=== PATIENT | female | born 1990 | race Two or more races ===

== ENCOUNTER 2017-04-17 22:29 | Emergency (ER) | payer SELFPAY ==
[~2017-04-17] VITALS: Ht 154.9 cm; Wt 47.2 kg
[2017-04-17] MEDS ORDERED: IV NS 0.9% 1,000 ML ONE (23:23)
[2017-04-17] MEDS ORDERED: IV SET PRIMARY 1 EA INFUS.SET MC ONE (23:24)
[2017-04-17] MEDS ORDERED: ONDANSETRON HCL/PF 4 MG/2 ML VIAL ONE (23:24)
[2017-04-17] MEDS ORDERED: HYDROMORPHONE 1 MG/1 ML DISP.SYRIN ONE (23:24)
--- NOTE | 2017-04-17 23:35 | NUR ---
PT PRESENTED TO THE ER WITH A C/O MID ABD PAIN 05/09. PT STATED THAT SHE IS NAUSEATED AND VOMITTED [employer]PA[employer]. PT IS ON THE MONITOR AND CONTINUOUS PULSE OX. PT'S FRIENDS ARE AT THE BEDSIDE.
[2017-04-17] MEDS: ONDANSETRON HCL/PF 4 MG/2 ML VIAL IVP ONE (23:50)
[2017-04-17] MEDS: HYDROMORPHONE 1 MG/1 ML DISP.SYRIN IV ONE (23:50)
[2017-04-17] MEDS: IV NS 0.9% 1,000 ML BAG IV ONE (23:50)
[2017-04-17 23:57] LABS: BASOPHILS % (AUTO) 0.5 % (0.0-2.0); EOSINOPHILS # (AUTO) 0.1 /CMM (0.0-0.7); EOSINOPHILS % (AUTO) 1.1 % (0.0-6.0); HEMATOCRIT 45 % (33-45); HEMOGLOBIN 14.9 g/dL (11.5-14.8); LYMPHOCYTES # (AUTO) 2.7 /CMM (0.8-4.8); LYMPHOCYTES % (AUTO) 28.6 % (20.0-44.0); MEAN CORPUSCULAR HEMOGLOBIN 31 PG (26.0-33.0); MEAN CORPUSCULAR HGB CONC 33 g/dl (31.0-36.0); MEAN CORPUSCULAR VOLUME 91 fL (82-100); MONOCYTES # (AUTO) 0.7 /CMM (0.1-1.30); MONOCYTES % (AUTO) 7.3 % (2.0-12.0); NEUTROPHILS # (AUTO) 5.9 /CMM (1.8-8.9); NEUTROPHILS % (AUTO) 62.5 % (43.0-81.0); PLATELET COUNT (AUTO) 320 /CMM (150-450); RED BLOOD CELL COUNT(AUTO) 4.88 MIL/uL (4.0-5.2); WHITE BLOOD COUNT (AUTO) 9.5 K/uL (4.3-11.0)
[2017-04-18 00:05] LABS: CALCIUM, SERUM 9.2 mg/dL (8.5-10.1); CREATININE 0.6 mg/dL (0.6-1.3); POTASSIUM 3.5 mmol/L (3.5-5.1)
--- NOTE | 2017-04-18 00:10 | NUR ---
RODRIGO JAGDEEP, IS AT THE BEDSIDE.
[2017-04-18 00:12] LABS: ALBUMIN 4.5 g/dL (3.4-5.0); BILIRUBIN,DIRECT 0.1 mg/dL (0.0-0.2); BILIRUBIN,TOTAL 0.7 mg/dL (0.2-1.0); TOTAL PROTEIN, SERUM 8.1 g/dL (6.4-8.2)
[2017-04-18 00:18] LABS: INR 0.97 (0.87-1.13); PROTHROMBIN TIME 10.4 SECS (9.5-12.7)
[2017-04-18] MEDS ORDERED: HYDROMORPHONE 1 MG/1 ML DISP.SYRIN ONE (00:39)
[2017-04-18] MEDS: HYDROMORPHONE 1 MG/1 ML DISP.SYRIN IV ONE (00:50)
--- NOTE | 2017-04-18 01:45 | NUR ---
IV removed. Catheter intact and site benign. Pressure and 4x4 applied to site. No bleeding noted. Patient discharged to home in stable condition. Written and verbal after care instructions given. Patient verbalizes understanding of instruction AND RX. PT'S SISTER IS DRIVING PT HOME. VSS.
[2017-04-18 01:49] VITALS: BP 132/77
== END 2017-04-18 01:51 | disposition home or self-care (01) ==
LOC: ER 22:29
DX: R10.11 Right upper quadrant pain (principal); R11.2 Nausea with vomiting, unspecified
CPT/HCPCS: 76705-TC; 80048-TC; 80076-TC; 83690-TC; 84703-TC; 85025-TC; 85730-TC; A4606; J1170; J2405; J7030; Z7610

== ENCOUNTER 2019-11-17 20:55 | Emergency (ER) | payer BC ==
[~2019-11-17] VITALS: Ht 154.9 cm; Wt 45.4 kg
[2019-11-17 21:11] VITALS: BP 142/84
--- NOTE | 2019-11-17 21:24 | NUR ---
URINE COLLECTED AND SENT TO LAB
[2019-11-17 22:31] LABS: APPEARANCE,URINE Clear (CLEAR); BILIRUBIN,URINE SMALL (NEGATIVE); BLOOD, URINE Negative Ery/uL (NEGATIVE); COLOR,URINE Yellow (YELLOW); KETONES,URINE 40 (NEGATIVE); LEUKOCYTE ESTERASE ,URINE Trace (NEGATIVE); NITRITE, URINE Negative (NEGATIVE); PH,URINE 5.5 (5.0-8.0); PROTEIN,URINE 30 mg/dl (NEGATIVE); UGLUCOSE Negative (NEGATIVE)
--- NOTE | 2019-11-17 22:32 | NUR ---
BLOOD DRAWN BY PHLEB
[2019-11-17 22:43] LABS: BACTERIA,URINE Few /HPF (None Seen); RBC,URINE NONE SEEN /HPF (0-2); SQUAMOUS EPITHELIAL CELL,UR Few /HPF (None Seen)
== END 2019-11-17 23:16 | disposition home or self-care (01) ==
LOC: ER 20:55
DX: N39.0 Urinary tract infection, site not specified (principal); Z60.2 Problems related to living alone
CPT/HCPCS: 36415; 81000-TC; 84702-TC

== ENCOUNTER 2019-12-06 22:01 | Emergency (ER) | payer BC ==
[~2019-12-06] VITALS: Ht 177.8 cm; Wt 47.6 kg
--- NOTE | 2019-12-06 22:51 | NUR ---
PT CAME INTO THE ED C/O RECURRING BLADDER PRESSURE. NO PAIN. ON MACROBID 100 MG SINCE YESTERDAY. PT AAOX4, VSS, BREATHING EVEN AND UNLABORED ON ROOM AIR W/ NAD NOTED
[2019-12-06 23:56] VITALS: BP 117/89
[2019-12-06 23:58] LABS: APPEARANCE,URINE Clear (CLEAR); BILIRUBIN,URINE SMALL (NEGATIVE); BLOOD, URINE Negative Ery/uL (NEGATIVE); COLOR,URINE Red (YELLOW); KETONES,URINE 15 (NEGATIVE); LEUKOCYTE ESTERASE ,URINE Large (NEGATIVE); NITRITE, URINE Positive (NEGATIVE); PROTEIN,URINE 100 mg/dl (NEGATIVE); UGLUCOSE 250 MG/DL mg/dL (NEGATIVE); UROBILINOGEN,URINE >=8.0 EU/dL (0.2)
[2019-12-07 00:12] LABS: BACTERIA,URINE Few /HPF (None Seen); RBC,URINE 0-2 /HPF (0-2); SQUAMOUS EPITHELIAL CELL,UR Few /HPF (None Seen)
--- NOTE | 2019-12-07 00:47 | NUR ---
Patient discharged to home in stable condition. Written and verbal after care instructions given. Patient verbalizes understanding of instruction.
== END 2019-12-07 00:47 | disposition home or self-care (01) ==
LOC: ER 22:05
DX: N39.0 Urinary tract infection, site not specified (principal); Z60.2 Problems related to living alone
CPT/HCPCS: 81000-TC; 84703-TC; 87086-TC